=== PATIENT | male | born 1985 | race American Indian/Alaskan Native ===

== ENCOUNTER 2022-04-05 14:45 | Emergency (ER) | payer OTHER, SELFPAY ==
[2022-04-05 14:50] VITALS: BP 131/83; PULSE 71; RESP 18; TEMP 36.6; O2SAT 97; BMI 28.2
--- NOTE | 2022-04-05 14:54 | CRLHL7_ITS ---
For Patients: As a result of the Century Cures Act, medical imaging exams and procedure reports are released immediately into your electronic medical record. You may view this report before your referring provider. If you have questions, please contact your health care provider. INDICATION: Right scrotal pain 3-4 days achy. COMPARISON: None. TECHNIQUE: Abbasi scale imaging was performed of the scrotum. Color Doppler and spectral Doppler analysis was performed of the testes. FINDINGS: Testes: The right testis measures 4.3 x 2.1 x 4.1 cm in size and the left testis measures 4.1 x 2.1 x 3.4 cm. The testes demonstrate normal arterial and venous blood flow on color Doppler and spectral Doppler analysis. The testes have uniform echogenicity without evidence of a suspicious mass or area of inflammation. Epididymis: The epididymis is normal in appearance bilaterally. No hypervascularity. Other: Trace right inferior hydrocele. No left hydrocele. No varicocele. IMPRESSION: Trace right inferior hydrocele. Exam otherwise unremarkable. Dictated by Angelique Jules MD @ 04/05/2022 5:13:34 PM (Electronically Signed)
--- NOTE | 2022-04-05 15:15 | ED_ITS ---
HPI - General Adult General Chief complaint: Urogenital Problems, Male Stated complaint: Testicular Pain Time Seen by Provider: 04/05/22 15:10 History of Present Illness HPI narrative: This 37-year-old male comes in reporting right testicular pain radiating up into his abdomen. He states that these symptoms began about 3 days ago. He thought his boxer shorts might of been creeping up on him or perhaps something cause this pain as he was working out with weightlifting. This pain is persisted and is localized in the right testicle. He does not report any symptoms of dysuria or fever. He states that there is no swelling or erythema. Related Data Home Medications Medication Instructions Recorded Confirmed citalopram 20 mg tablet (Celexa) 20 mg PO DAILY 04/05/22 04/05/22 gabapentin 300 mg capsule 300 mg PO DAILY 04/05/22 04/05/22 Allergies Allergy/AdvReac Type Severity Reaction Status Date / Time Sulfa (Sulfonamide Allergy Verified 04/05/22 14:53 Antibiotics) Review of Systems Status of ROS: Reports: 10 or more systems reviewed and unremarkable except as noted in History and below Narrative: Constitutional: No fevers, no weight gain or loss. Eyes: No discharge. No vision changes. HENT: No congestion, no sore throat, no ear pain. Cardiovascular: No chest pain, no palpitations. Respiratory: No shortness of breath, no wheezes, no cough. Gastrointestinal: No vomiting, no diarrhea. Right testicular pain radiating up into the right abdomen. Genitourinary: No dysuria, no hematuria. Musculoskeletal: Normal range of motion. Skin: No rashes, no pruritis. Neurological: No dizziness, weakness, sensory change, speech change. Endo/Heme/Allergies: No bruising or bleeding. No polydipsia. Pysch: no suicidality, no anxiety, no insomnia. All other systems reviewed and are negative. PFSH PFS Social History Smoking Status: Never smoker How often do you have a drink containing alcohol: never How often do you have six or more drinks on one occasion: Never AUDIT-C Alcohol total score: 0 Non-prescribed substance use: denies use Exam Narrative: Exam Narrative: Constitutional: Well-developed, well-nourished, no acute distress. HEENT: Normocephalic, atraumatic. Neck: Normal range of motion. Nontender. Supple. Heart: Regular. No murmurs. Normal rate. Intact distal pulses. Lungs: Clear to auscultation. No chest discomfort. No wheezes, rhonchi, or rales. Abdomen: Normal bowel sounds. Abdomen is nontender. No rebound tenderness. Genitalia: Normal exam. Tender in the right testicle radiating up into the abdomen. Back: No midline tenderness. Normal range of motion. Extremities: Normal range of motion. No injury. Skin: Intact. No rash. Warm. No erythema or pallor. Neurologic: No altered sensation. No weakness. Alert and oriented. Psychiatric: No suicidality. No anxiety or depression. No insomnia. Nursing notes and vitals signs are reviewed. Const: Vital Signs, click to edit/add: Vital Signs - 24 hr 04/05/22 14:50 04/05/22 16:40 Temperature 97.9 F Pulse Rate [Right Pulse Oximeter] 71 71 Respiratory Rate 18 12 Blood Pressure [Ri t Upper Arm] 131/83 131/78 Pulse Oximetry 97 98 Oxygen Delivery Me thod Room Air Room Air Course Vital Signs Vital signs: Initial Vital Signs Temperature 97.9 F 04/05/22 14:50 Temperature Source Temporal Artery Scan 04/05/22 14:50 Pulse Rate 71 04/05/22 14:50 Respiratory Rate 18 04/05/22 14:50 Blood Pressure 131/83 04/05/22 14:50 Blood Pressure Mean 99 04/05/22 14:50 Blood Pressure Position Sitting 04/05/22 14:50 Pulse Oximetry 97 04/05/22 14:50 Oxygen Delivery Method 04/05/22 14:50 Vital Signs Temperature 97.9 F 04/05/22 14:50 Pulse Rate 71 04/05/22 14:50 Respiratory Rate 18 04/05/22 14:50 Blood Pressure 131/83 04/05/22 14:50 Pulse Oximetry 97 04/05/22 14:50 Oxygen Delivery Method 04/05/22 14:50 Temperature 97.9 F 04/05/22 14:50 Pulse Rate 71 04/05/22 16:40 Respiratory Rate 12 04/05/22 16:40 Blood Pressure 131/78 04/05/22 16:40 Pulse Oximetry 98 04/05/22 16:40 Oxygen Delivery Method 04/05/22 16:40 Medical Decision Making MDM Narrative Medical decision making narrative: This patient comes in reporting right testicular pain as described above. Ultrasound imaging of the scrotum shows no abnormality that explains the patient's discomfort. He is not exhibiting signs is typical of ureteral calculus. He is presenting with normal vital signs including normal temperature. This was reassuring to the patient. He is okay to return home. He did receive a prescription for Toradol. Imaging Data US Scrotum: Radiologist's impression: Trace right inferior hydrocele. Exam otherwise unremarkable. Discharge Plan Discharge Clinical Impression: Right testicular pain Patient Disposition: Home, Self-Care Condition: Stable Additional Instructions: Take medication as prescribed. Follow up with MD or return if worsening. Prescriptions: No Action citalopram [Celexa] 20 mg tablet 20 mg PO DAILY gabapentin 300 mg capsule 300 mg PO DAILY Follow Up/Referrals: Provider,Not a Local [Primary Care Provider] - Stand Alone Forms: Vis[employer] Info Instructions
[2022-04-05 16:40] VITALS: BP 131/78; PULSE 71; RESP 12; O2SAT 98
== END 2022-04-05 17:48 | disposition home or self-care (01) ==
PROVIDERS: Emergency Provider Emergency Medicine Emergency Medical Services
DX: N50.811 Right testicular pain (principal)
CPT/HCPCS: 76870; 93976; 99284